=== PATIENT | female | born 1960 | race Caucasian/White ===

== ENCOUNTER 2020-04-30 11:14 | Inpatient (IN) | payer BC ==
[2020-04-30] MEDS ORDERED: ASPIRIN 81 MG PO STA (11:44)
[2020-04-30] MEDS ORDERED: SODIUM CHLORIDE 0.9% 500 ML 500 ML IV STA (11:44)
--- NOTE | 2020-04-30 11:52 | ED ---
General Adult HPI - General Chief complaint: Chest Pain Stated complaint: Chest Pain Time Seen by Provider: 04/30/20 11:31 Source: patient, RN notes reviewed Mode of arrival: wheelchair Limitations: no limitations - History of Present Illness Initial comments: Roseann is a pleasant 59-year-old female who presents to the emergency department for a chief complaint of chest pain. Patient states that approximately 1.5 hours prior to arrival she started to have some chest pain. Patient states she was walking with her daughter and had walked about a mile and a half and she started to have a squeezing chest pain. Patient states she normally walks 3-4 miles per day without problems. Patient states the pain was a squeezing pressure in the center of her chest. States that she started to become nauseous when she had this pain and diaphoretic. Patient states she started to get dizzy so she sat down on the curb and her daughter went to get the golf car to drive her back to the house and then drove her to the hospital. Patient did take an 81 mg aspirin. Patient has a history of high blood pressure, no history of hypercholesterolemia. Patient did have a similar episode that lasted 5 minutes 2 in November of this year and had a Holter monitor and stress test performed at [facility] which were both apparently negative according to patient. On presentation patient's pain has completely resolved and she is feeling back to her normal self. Patient has no other complaints at this time including shortness of breath, abdominal pain, vomiting, headache, or visual changes. - Related Data Allergies Allergy/AdvReac Type Severity Reaction Status Date / Time Penicillins AdvReac Nausea & Verified 04/30/20 11:24 Vomiting Sulfa (Sulfonamide AdvReac Rash/Hives Verified 04/30/20 11:24 Antibiotics) Review of Systems ROS Statement: Those systems with pertinent positive or pertinent negative responses have been documented in the HPI. ROS Other: All systems not noted in ROS Statement are negative. Past Medical History Past Medical History: Hypertension, Thyroid Disorder History of Any Multi-Drug Resistant Organisms: None Reported Past Surgical History: Section, Orthopedic Surgery, Tonsillectomy Past Psychological History: No Psychological Hx Reported Smoking Status: Never smoker Past Alcohol Use History: Occasional Past Drug Use History: None Reported General Exam Limitations: no limitations General appearance: alert, in no apparent distress Head exam: Present: atraumatic, normocephalic, normal inspection Eye exam: Present: normal appearance, PERRL, EOMI. Absent: scleral icterus, conjunctival injection, periorbital swelling ENT exam: Present: normal exam, mucous membranes moist Neck exam: Present: normal inspection, full ROM. Absent: tenderness, meningismus, lymphadenopathy Respiratory exam: Present: normal lung sounds bilaterally. Absent: respiratory distress, wheezes, rales, rhonchi, stridor Cardiovascular Exam: Present: regular rate, normal rhythm, normal heart sounds. Absent: systolic murmur, diastolic murmur, rubs, gallop, clicks Course Vital Signs 04/30/20 11:19 Temperature 97.3 F L Pulse Rate 80 Respiratory 18 Rate Blood Pressure 140/83 O2 Sat by Pulse 99 Oximetry EKG Findings - EKG Comments: EKG Findings:: Normal sinus rhythm, ventricular rate 77, MT interval 148, QTC 443 Medical Decision Making - Medical Decision Making Vitals are stable. Patient describes chest pain as atypical type of chest pain with chest pressure substernally, nausea, diaphoresis, and dizziness which occu rred while she was on a walk. Patient presents to the emergency room with chest pain resolved. CBC CMP unremarkable. Troponin negative. EKG shows a normal sinus rhythm with a ventricular rate of 77. No evidence for ST elevation or depression. Chest x-ray negative as well. At this time given typical symptoms of chest pain on exertion patient was heparinized, denies bleeding history. Patient will be admitted with cardiology consultation. - Lab Data Result diagrams: 04/30/20 11:35 04/30/20 11:35 Lab Results 04/30/20 04/30/20 04/30/20 Range/Units 11:35 11:35 11:35 WBC 6.7 (3.8-10.6) k/uL RBC 5.26 (3.80-5.40) m/uL Hgb 14.7 (11.4-16.0) gm/dL Hct 46.6 H (34.0-46.0) % MCV 88.6 (80.0-100.0) fL MCH 27.9 (25.0-35.0) pg MCHC 31.4 (31.0-37.0) g/dL RDW 13.8 (11.5-15.5) % Plt Count 275 (150-450) k/uL Neutrophils % 78 % Lymphocytes % 16 % Monocytes % 4 % Eosinophils % 0 % Basophils % 0 % Neutrophils # 5.2 (1.3-7.7) k/uL Lymphocytes # 1.1 (1.0-4.8) k/uL Monocytes # 0.3 (0-1.0) k/uL Eosinophils # 0.0 (0-0.7) k/uL Basophils # 0.0 (0-0.2) k/uL PT 9.7 (9.0-12.0) sec INR 0.9 (<1.2) APTT 21.4 L (22.0-30.0) sec Sodium 139 (137-145) mmol/L Potassium 4.1 (3.5-5.1) mmol/L Chloride 103 (98-107) mmol/L Carbon Dioxide 27 (22-30) mmol/L Anion Gap 9 mmol/L BUN 13 (7-17) mg/dL Creatinine 0.91 (0.52-1.04) mg/dL Est GFR (CKD-EPI)AfAm 79 (>60 ml/min/1.73 sqM) Est GFR (CKD-EPI)NonAf 69 (>60 ml/min/1.73 sqM) Glucose 162 H (74-99) mg/dL Calcium 9.5 (8.4-10.2) mg/dL Magnesium 1.9 (1.6-2.3) mg/dL Total Bilirubin 0.8 (0.2-1.3) mg/dL AST 114 H (14-36) U/L ALT 45 H (4-34) U/L Alkaline Phosphatase 128 H (38-126) U/L Troponin I (0.000-0.034) ng/mL Total Protein 7.2 (6.3-8.2) g/dL Albumin 4.3 (3.5-5.0) g/dL Amylase 39 (30-110) U/L Lipase 74 (23-300) U/L /05/14 Range/Units 11:35 WBC (3.8-10.6) k/uL RBC (3.80-5.40) m/uL Hgb (11.4-16.0) gm/dL Hct (34.0-46.0) % MCV (80.0-100.0) fL MCH (25.0-35.0) pg MCHC (31.0-37.0) g/dL RDW (11.5-15.5) % Plt Count (150-450) k/uL Neutrophils % % Lymphocytes % % Monocytes % % Eosinophils % % Basophils % % Neutrophils # (1.3-7.7) k/uL Lymphocytes # (1.0-4.8) k/uL Monocytes # (0-1.0) k/uL Eosinophils # (0-0.7) k/uL Basophils # (0-0.2) k/uL PT (9.0-12.0) sec INR (<1.2) APTT (22.0-30.0) sec Sodium (137-145) mmol/L Potassium (3.5-5.1) mmol/L Chloride (98-107) mmol/L Carbon Dioxide (22-30) mmol/L Anion Gap mmol/L BUN (7-17) mg/dL Creatinine (0.52-1.04) mg/dL Est GFR (CKD-EPI)AfAm (>60 ml/min/1.73 sqM) Est GFR (CKD-EPI)NonAf (>60 ml/min/1.73 sqM) Glucose (74-99) mg/dL Calcium (8.4-10.2) mg/dL Magnesium (1.6-2.3) mg/dL Total Bilirubin (0.2-1.3) mg/dL AST (14-36) U/L ALT (4-34) U/L Alkaline Phosphatase (38-126) U/L Troponin I <0.012 (0.000-0.034) ng/mL Total Protein (6.3-8.2) g/dL Albumin (3.5-5.0) g/dL Amylase (30-110) U/L Lipase (23-300) U/L Disposition Clinical Impression: Chest pain Disposition: ADMITTED IP TO THIS HOSP Condition: Good Instructions (If sedation given, give patient instructions): Chest Pain (ED) Is patient prescribed a controlled substance at d/c from ED?: No Referrals: Norberto Vazquez DO [Primary Care Provider] - 1-2 days Time of Disposition: 13:01
--- NOTE | 2020-04-30 12:06 | XR ---
EXAMINATION TYPE: XR chest 2V DATE OF EXAM ORDERED: 04/30/2020 HISTORY: Chest Pain. REFERENCE: None. FINDINGS: The lungs are clear. Pleural spaces are clear. Heart size is normal. IMPRESSION: NORMAL CHEST.
[2020-04-30 12:08] LABS: Basophils % (A) 0 %; Eosinophils % (A) 0 %; HCT 46.6 % (34.0-46.0); HGB 14.7 gm/dL (11.4-16.0); Lymphocytes # (A) 1.1 k/uL (1.0-4.8); Lymphocytes % (A) 16 %; MCH 27.9 pg (25.0-35.0); MCHC 31.4 g/dL (31.0-37.0); MCV 88.6 fL (80.0-100.0); Mean Platelet Volume 8.3; Monocytes # (A) 0.3 k/uL (0-1.0); Monocytes % (A) 4 %; Neutrophils # (A) 5.2 k/uL (1.3-7.7); Neutrophils % (A) 78 %; Platelet Count 275 k/uL (150-450); RBC 5.26 m/uL (3.80-5.40); RDW 13.8 % (11.5-15.5); WBC 6.7 k/uL (3.8-10.6)
[2020-04-30 12:17] LABS: Albumin 4.3 g/dL (3.5-5.0); Calcium 9.5 mg/dL (8.4-10.2); INR 0.9 (<1.2); Magnesium 1.9 mg/dL (1.6-2.3); Potassium 4.1 mmol/L (3.5-5.1); Prothrombin Time 9.7 sec (9.0-12.0); Total Bilirubin 0.8 mg/dL (0.2-1.3); Total Protein 7.2 g/dL (6.3-8.2)
[2020-04-30 12:27] LABS: Partial Thromboplastin Time 21.4 sec (22.0-30.0)
[2020-04-30] MEDS ORDERED: HEPARIN SODIUM,PORCINE 5,000 UNIT/ML 1 ML VIAL IV PRN (12:56)
[2020-04-30] MEDS: HEPARIN SOD,PORK IN 0.45% NACL 25,000 UNIT in 0.45% NACL 1 250ML.BAG IV SCH ×2 (13:10→20:47)
[2020-04-30] MEDS: HEPARIN SODIUM,PORCINE 5,000 UNIT/ML 1 ML VIAL IV ONE ×2 (13:15→20:39)
[2020-04-30] MEDS ORDERED: ACETAMINOPHEN TAB 500 MG TAB PO PRN (16:04)
[2020-04-30] MEDS: LEVOTHYROXINE 50 MCG TAB PO SCH (16:41)
[2020-04-30] MEDS ORDERED: ALPRAZolam 0.25 MG TAB PO PRN (21:16)
[2020-04-30] MEDS ORDERED: TEMAZEPAM 15 MG CAP PO PRN (21:16)
--- NOTE | 2020-04-30 23:21 | HP ---
HISTORY AND PHYSICAL DATE OF SERVICE: 04/30/2020 CHIEF COMPLAINT: Chest pain. HISTORY OF PRESENT ILLNESS: This 59-year-old woman with a past medical history of multiple medical problems including hypertension, hypothyroidism, history of section, history of DJD being followed by Dr. Vazquez in the [place] area, was staying in the [facility]. Patient was walking. Patient had chest pain which was felt in the lower part of the chest which was crushing in character, mild to moderate intensity without radiation. Usually the pain was relieving after a few minutes of resting, but because the pain is not relieving, the daughter was concerned and the patient was brought to [facility] Emergency Room and was admitted for evaluation and treatment. The patient also had some nausea along with that. The patient also had a stress test done in December with the family doctor which is negative for any reversible ischemia. There was no history of any palpitations, no history of cough, hemoptysis, fever, rigors, chills at this time. PAST MEDICAL HISTORY: History of hypertension, hypothyroidism, history of section, DJD, history of anxiety. MEDICATIONS PRIOR TO ADMISSION: 1. Glucosamine chondroitin. 2. Ziac 1 p.o. daily. 3. Tylenol. 4. Fluticasone. 5. Calcium with vitamin D. 6. Omeprazole. 7. Multivitamin. 8. Losartan 100 mg p.o. daily. 9. Synthroid 25 mcg p.o. Saturday and Synthroid 50 mcg p.o. Saturday, Saturday, Saturday, , Saturday, Saturday. ALLERGIES: PENICILLIN, SULFA. FAMILY HISTORY: No history of heart attacks or strokes in the family. 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 Occasional alcohol intake. No history of smoking. REVIEW OF SYSTEMS: ENT No history of diminished hearing or vision. CARDIOVASCULAR As mentioned earlier. RESPIRATORY As mentioned earlier. GI No nausea, vomiting, or diarrhea. No dysuria or hematuria. NERVOUS No numbness or weakness. ALLERGY/IMMUNOLOGY No asthma or hayfever. MUSCULOSKELETAL As mentioned earlier. HEMATOLOGY/ONCOLOGY Negative. ENDOCRINE Hypothyroidism. CONSTITUTIONAL As mentioned earlier. DERMATOLOGY Negative. RHEUMATOLOGY Negative, PSYCHIATRY As mentioned earlier. PHYSICAL EXAMINATION: Alert and oriented x3. Pulse is 80, blood pressure 141/82, respiration 12, temperature 97.6, pulse ox 98% on room air. HEENT: Conjunctivae normal. Oral mucosa moist. NECK: No jugular venous distention. No lymph node enlargement. CARDIOVASCULAR: S1, S2. RESPIRATORY: Diminished breath sounds at the bases. No rhonchi, no crackles. ABDOMEN: Soft, nontender. No mass palpable. LEGS: No edema, no swelling. NERVOUS SYSTEM: Higher functions mentioned earlier. Moves all four limbs. No focal deficits. LYMPHATICS: No lymph node in neck or axilla. SKIN: No rash. JOINTS: No active deforming arthropathy. LABS: CBC within normal limits. APTT 21.4. Glucose 162, AST is 114, ALT is 45, alkaline phosphatase 128. ASSESSMENT: 1. Chest pain, possible unstable angina. 2. History of recent negative stress test. 3. Increased AST/ALT. 4. Increased random blood sugar. 5. Hypertension. 6. Hypothyroidism. 7. History of section. 8. History of degenerative joint disease. 9. History of anxiety. 10.Obesity with body mass index of 35.4. RECOMMENDATIONS AND DISCUSSION: In this 59-year-old woman who presented with multiple complex medical issues, we will monitor the patient closely, continue the current management, continue symptomatic treatment. Initial troponins are negative. The EKG also did not show any acute abnormality. We will monitor closely. Unstable angina protocol with IV heparin. Repeat troponins. Rule out myocardial infarction. Cardiology consultation. Prognosis guarded because of multiple complex medical issues. Further recommendations to follow. Discussed with the patient who understands and agrees. MMODL / IJN: [id number] /
[2020-05-01 03:46] LABS: Albumin 3.6 g/dL (3.5-5.0); Calcium 9.2 mg/dL (8.4-10.2); Potassium 4.4 mmol/L (3.5-5.1); Total Bilirubin 0.4 mg/dL (0.2-1.3); Total Protein 6.3 g/dL (6.3-8.2)
[2020-05-01 04:08] LABS: Cholesterol 141 mg/dL (<200); HDL Cholesterol 69 mg/dL (40-60); LDL Cholesterol,Calculated 62 mg/dL (0-99); Triglycerides 51 mg/dL (<150)
[2020-05-01] MEDS ORDERED: LEVOTHYROXINE 50 MCG TAB PO SCH (06:30)
[2020-05-01] MEDS ORDERED: METHSCOPOLAMINE 5 MG PO SCH (09:00)
[2020-05-01] MEDS ORDERED: NON FORMULARY DRUG (Glucosam/Chon-Msm1/C/Mang/Bosw [Glucosamine-Chondroitin Tablet] 1 TAB) PO SCH (09:00)
[2020-05-01] MEDS ORDERED: ASPIRIN 325 MG TAB PO SCH (09:00)
[2020-05-01] MEDS: CALCIUM CARB-VIT D 500MG-200UN 1 EACH TAB PO SCH (09:01)
[2020-05-01] MEDS: LOSARTAN 50 MG TAB PO SCH (09:01)
[2020-05-01] MEDS: LORATADINE 10 MG TAB PO SCH (09:01)
[2020-05-01] MEDS: PANTOPRAZOLE 40 MG TABLET PO SCH (09:01)
[2020-05-01] MEDS: MULTIVITAMINS, THERA 1 EACH TAB PO SCH (09:01)
--- NOTE | 2020-05-01 10:21 | P.CRDCN ---
History of Present Illness Consult date: 05/01/20 Consult reason: chest pain History of present illness: The patient is a 59-year-old female with past medical history of hypothyroidism, hypertension, and acid reflux, who presented to the hospital with new onset of chest discomfort. She states this initially started back in November, where she would develop a sharp pressure-like sensation in her epigastric area. She states it would last approximately 10 minutes and was associated with diapho resis. She had 2 of these episodes in November and subsequently followed up with her primary care provider for stress testing and Holter monitor. Exercise stress echocardiogram at that time was unremarkable. She states her Holter monitor was also within normal limits, however we do not have a copy of this. On Saturday she had a large breakfast and started walking with her daughter. She developed the same epigastric discomfort, however it did not resolve within 10 minutes. At that point she instructed her daughter to drive her to the emergency room. By the time she arrived the pain started to subside, however it lasted approximately 45 minutes in duration. EKG shows sinus mechanism without acute ST or T-wave changes. Cardiac enzymes negative 3. Chest x-ray negative for acute process. She has not had any additional chest discomfort since her arrival. PAST MEDICAL HISTORY: Hypertension, hypothyroidism, anxiety disorder, obesity, acid reflux REVIEW OF SYSTEMS: No fever or chills. No cough or expectoration. No diaphoresis. Patient denies headache, dizziness, blurred vision, double vision. Patient denies any stomach discomfort. No nausea, vomiting. No hematochezia. No hematemesis. Denies any black stools or blood in his stools. Denies dysuria or hematuria. No muscle weakness or numbness. No chest pain. PHYSICAL EXAMINATION: This is a 59-year-old female in no apparent distress at the time of my examination. HEENT: Head is atraumatic, normocephalic. Pupils are equal, round. Sclerae anicteric. Conjunctivae are clear. Mucous membranes of the mouth are moist. Neck is supple. There is no jugular venous distention. No carotid bruit is heard. CHEST EXAMINATION: Lungs are clear to auscultation. No chest wall tenderness is noted on palpation or with deep breathing. HEART EXAMINATION: Heart regular rate and rhythm. S1, S2 heard. No murmurs, gallops or rub. ABDOMEN: Soft, nontender. Bowel sounds are heard. No organomegaly noted. EXTREMITIES: 2+ peripheral pulses with no evidence of peripheral edema and no calf tenderness noted. NEUROLOGIC EXAMINATION: Patient is awake, alert and oriented x3. LABORATORY DATA: WBC 6.7, hemoglobin 14.7, hematocrit 46.6, platelet 275, sodium 139, potassium 4.1, BUN 13, creatinine 0.91, magnesium 1.9, AST 114, ALT 45, ALP 128, triglycerides 51, HDL 69, LDL 62, troponins less than 0.0123 FINAL ASSESSMENT AND PLAN: #1 recurrent chest discomfort, recent normal stress echocardiogram in December #2 hypertension, reasonably well controlled #3 hypothyroidism #4 GERD #5 elevated liver enzymes PLAN: Discontinue heparin drip. Continue low dose ASA. Dr. Chinchilla discussed plan with the patient and recommends proceeding with left heart cath tomorrow morning to rule out coronary artery disease. However if the patient feels that she wants to follow-up in [facility], she may be discharged for outpatient followup. Past Medical History Past Medical History: Hypertension, Thyroid Disorder Additional Past Medical History / Comment(s): hypothyroid History of Any Multi-Drug Resistant Organisms: None Reported Past Surgical History: Section, Orthopedic Surgery, Tonsillectomy Additional Past Surgical History / Comment(s): left wrist sx, 2 ganglion cysts removed from bilat legts, D&C Past Anesthesia/Blood Transfusion Reactions: No Reported Reaction Past Psychological History: Anxiety Smoking Status: Never smoker Past Alcohol Use History: Occasional Past Drug Use History: None Reported Medications and Allergies Home Medications Medication Instructions Recorded Confirmed Type Acetaminophen [Tylenol Extra 1,000 mg PO DAILY PRN 04/30/20 04/30/20 History Strength] Calcium Carbonate/Vitamin D3 1 tab PO DAILY 04/30/20 04/30/20 History [Calcium 600-Vit D3 200 Tablet] Cetirizine HCl [Zyrtec] 10 mg PO DAILY 04/30/20 04/30/20 History Fluticasone Nasal [place] [Flonase 2 spr EA NOSTRIL DAILY 04/30/20 04/30/20 History Nasal [place]] Glucosam/Hung-Msm1/C/Bennie/Bosw 1 tab PO DAILY 04/30/20 04/30/20 History [Glucosamine-Chondroitin Tablet] Levothyroxine Sodium [Synthroid] 25 mcg PO CHUN 04/30/20 04/30/20 History Levothyroxine Sodium [Synthroid] 50 mcg PO [id number] 04/30/20 04/30/20 History Losartan Potassium 100 mg PO DAILY 04/30/20 04/30/20 History Methscopolamine 5mg 5 mg PO DAILY 04/30/20 04/30/20 History Multivitamins, Thera [Multivitamin 1 tab PO DAILY 04/30/20 04/30/20 History (formulary)] Omeprazole 20 mg PO DAILY 04/30/20 04/30/20 History Allergies Allergy/AdvReac Type Severity Reaction Status Date / Time Penicillins AdvReac Nausea & Verified 04/30/20 13:07 Vomiting Sulfa (Sulfonamide AdvReac Rash/Hives Verified 04/30/20 13:07 Antibiotics) Physical Exam Vitals: Vital Signs Temp Pulse Pulse Resp BP BP Pulse Ox 05/01/20 08:00 97.9 F 83 18 155/94 98 05/01/20 04:00 97.7 F 72 15 138/99 98 04/30/20 23:30 98.2 F 85 19 131/70 97 04/30/20 19:15 98.1 F 77 14 152/91 98 04/30/20 16:00 80 12 04/30/20 15:03 97.6 F 80 12 141/82 99 04/30/20 13:16 80 18 120/90 98 04/30/20 11:19 97.3 F L 80 18 140/83 99 Intake and Output 04/30/20 05/01/20 05/01/20 22:59 06:59 14:59 Intake Total 1276.167 Balance 1276.167 Intake: Intake, IV Titration 76.167 Amount Heparin Sod,Pork in 0.45% 76.167 NaCl 25,000 unit In 0.45 % NaCl 1 250ml.bag @ 10. 35 UNITS/KG/HR 10 mls/hr IV .Q24H [facility] Rx#: [id number] Oral 1200 Other: Voiding Method Toilet Toilet # Voids 1 1 Results 04/30/20 11:35 05/01/20 02:53 Cardiac Enzymes 04/30/20 04/30/20 04/30/20 Range/Units 11:35 11:35 19:18 AST 114 H (14-36) U/L Troponin I <0.012 <0.012 (0.000-0.034) ng/mL 05/01/20 05/01/20 Range/Units 01:11 02:53 AST 56 H (14-36) U/L Troponin I <0.012 (0.000-0.034) ng/mL Coagulation 04/30/20 04/30/20 05/01/20 Range/Units 11:35 19:18 02:53 PT 9.7 10.0 (9.0-12.0) sec APTT 21.4 L 32.3 H 56.0 H (22.0-30.0) sec Lipids 05/01/20 Range/Units 02:53 Triglycerides 51 (<150) mg/dL Cholesterol 141 (<200) mg/dL HDL Cholesterol 69 H (40-60) mg/dL CBC 04/30/20 Range/Units 11:35 WBC 6.7 (3.8-10.6) k/uL RBC 5.26 (3.80-5.40) m/uL Hgb 14.7 (11.4-16.0) gm/dL Hct 46.6 H (34.0-46.0) % Plt Count 275 (150-450) k/uL Comprehensive Metabolic Panel 04/30/20 05/01/20 Range/Units 11:35 02:53 Sodium 139 139 (137-145) mmol/L Potassium 4.1 4.4 (3.5-5.1) mmol/L Chloride 103 108 H (98-107) mmol/L Carbon Dioxide 27 25 (22-30) mmol/L BUN 13 15 (7-17) mg/dL Creatinine 0.91 0.89 (0.52-1.04) mg/dL Glucose 162 H 96 (74-99) mg/dL Calcium 9.5 9.2 (8.4-10.2) mg/dL AST 114 H 56 H (14-36) U/L ALT 45 H 56 H (4-34) U/L Alkaline Phosphatase 128 H 118 (38-126) U/L Total Protein 7.2 6.3 (6.3-8.2) g/dL Albumin 4.3 3.6 (3.5-5.0) g/dL Current Medications Generic Name Dose Route Start Last Admin Trade Name Freq PRN Reason Stop Dose Admin Acetaminophen 1,000 mg 04/30/20 16:04 Tylenol Tab PO DAILY PRN Pain Alprazolam 0.25 mg 04/30/20 21:16 Xanax PO TID PRN Anxiety Aspirin 325 mg 05/01/20 09:00 05/01/20 09:01 Aspirin PO 325 mg DAILY DEVIN Administration Calcium Carbonate 1 each 05/01/20 09:00 05/01/20 09:01 Oscal 500+D PO 1 each DAILY DEVIN Administration Fluticasone Propionate 2 spray 05/01/20 09:00 Flonase Nasal [place] EA NOSTRIL DAILY DEVIN Levothyroxine Sodium 50 mcg 04/30/20 16:15 04/30/20 16:41 Synthroid PO Not Given [id number] [facility] Levothyroxine Sodium 25 mcg 05/01/20 06:30 05/01/20 06:35 Synthroid PO 25 mcg Chun@0630 DEVIN Administration Loratadine 10 mg 05/01/20 09:00 05/01/20 09:01 Claritin PO 10 mg DAILY DEVIN Administration Losartan Potassium 100 mg 05/01/20 09:00 05/01/20 09:01 Cozaar PO 100 mg DAILY [facility] Administration Multivitamins 1 each 05/01/20 09:00 05/01/20 09:01 Theragran PO 1 each DAILY [facility] Administration Methscopolamine 5mg 5 mg 05/01/20 09:00 05/01/20 09:04 PO Not Given DAILY DEVIN Pantoprazole Sodium 40 mg 05/01/20 07:30 05/01/20 09:01 Protonix PO 40 mg AC-[id number] [facility] Administration Temazepam 15 mg 04/30/20 21:16 Restoril PO HS PRN Insomnia Intake and Output 04/30/20 05/01/20 05/01/20 22:59 06:59 14:59 Intake Total 1276.167 Balance 1276.167 Intake: Intake, IV Titration 76.167 Amount Heparin Sod,Pork in 0.45% 76.167 NaCl 25,000 unit In 0.45 % NaCl 1 250ml.bag @ 10. 35 UNITS/KG/HR 10 mls/hr IV .Q24H [facility] Rx#: [id number] Oral 1200 Other: Voiding Method Toilet Toilet # Voids 1 1 04/30/20 11:35 05/01/20 02:53
[2020-05-01] MEDS: FLUTICASONE 50MCG/SPRAY NASAL 16GM EA NOSTRIL SCH (11:12)
[2020-05-01] MEDS ORDERED: ALPRAZolam 0.25 MG TAB PO PRN (12:56)
[2020-05-01] MEDS ORDERED: ALPRAZolam 0.5 MG TAB PO PRN (12:56)
[2020-05-01] MEDS ORDERED: NITROGLYCERIN SL TABS 0.4 MG TAB SUBLINGUAL PRN (12:56)
[2020-05-01] MEDS ORDERED: SODIUM CHLORIDE 0.9% 1,000 ML in EMPTY BAG 1 BAG IV ONE (12:56)
[2020-05-01] MEDS: ASPIRIN 81 MG PO SCH (12:59)
[2020-05-01 17:35] LABS: Basophils % (A) 1 %; Eosinophils # (A) 0.1 k/uL (0-0.7); Eosinophils % (A) 1 %; HCT 44.4 % (34.0-46.0); HGB 13.5 gm/dL (11.4-16.0); Hypochromasia Moderate; Lymphocytes # (A) 1.7 k/uL (1.0-4.8); Lymphocytes % (A) 28 %; MCH 28.3 pg (25.0-35.0); MCHC 30.3 g/dL (31.0-37.0); MCV 93.3 fL (80.0-100.0); Mean Platelet Volume 10.6; Monocytes # (A) 0.4 k/uL (0-1.0); Monocytes % (A) 8 %; Neutrophils # (A) 3.5 k/uL (1.3-7.7); Neutrophils % (A) 60 %; Platelet Count 215 k/uL (150-450); RBC 4.76 m/uL (3.80-5.40); RDW 13.9 % (11.5-15.5); WBC 5.8 k/uL (3.8-10.6)
--- NOTE | 2020-05-01 23:59 | PN ---
PROGRESS NOTE DATE OF SERVICE: 05/01/2020 This 59-year-old woman who presented with multiple complex medical issues including chest pain is being closely monitored at this time. Cardiology planning cardiac catheterization tomorrow. No chest pain. No palpitations. No fever. PHYSICAL EXAMINATION: On exam, alert and oriented x3. Pulse 73, blood pressure 114/70, respiration 18, temperature 98.2, pulse ox 97% on room air. HEENT: Conjunctivae normal. NECK: No jugular venous distention. CARDIOVASCULAR: S1, S2 muffled. RESPIRATORY: Breath sounds diminished at the bases. No rhonchi, no crackles. ABDOMEN: Soft, nontender. LEGS: No edema. No swelling. NERVOUS SYSTEM: No focal deficits. LABS: Sodium 139, potassium 4.4. AST is 56, ALT is 56. HDL is 69. ASSESSMENT: 1. Chest pain possible unstable angina. 2. History of recent negative stress test. 3. Increased AST, ALT. 4. Increased random blood sugar. 5. Hypertension. 6. Hypothyroidism. 7. History of section. 8. History of degenerative joint disease. 9. Anxiety. 10.Obesity with body mass of 35.4. RECOMMENDATIONS AND DISCUSSION: Recommend to continue current medical medication. Continues symptomatic treatment. Otherwise follow closely with Cardiology, possible cardiac catheterization. Otherwise, I would also recommend acute hepatitis panel. Otherwise guarded prognosis. Further recommendations to follow. MMODL / IJN: [id number] /
[2020-05-02] MEDS ORDERED: ASPIRIN 325 MG TAB PO ONE (05:00)
[2020-05-02] MEDS ORDERED: ATORVASTATIN 80 MG TAB PO ONE (05:00)
[2020-05-02] MEDS: CALCIUM CARB-VIT D 500MG-200UN 1 EACH TAB PO SCH (05:39)
[2020-05-02] MEDS: ASPIRIN 81 MG PO SCH (05:39)
[2020-05-02] MEDS: LEVOTHYROXINE 50 MCG TAB PO SCH (05:39)
[2020-05-02] MEDS: LOSARTAN 50 MG TAB PO SCH (05:39)
[2020-05-02] MEDS: PANTOPRAZOLE 40 MG TABLET PO SCH (05:40)
[2020-05-02] MEDS: LORATADINE 10 MG TAB PO SCH (05:40)
[2020-05-02 06:10] LABS: Glucose,Whole Blood 90 mg/dL (75-99)
[2020-05-02 08:04] VITALS: RESP 18
[2020-05-02 08:19] LABS: Prothrombin Time 10.2 sec (9.0-12.0)
[2020-05-02] MEDS ORDERED: LIDOCAINE 1% INJ 10MG/ML (20 ML MDV) ONE (08:37)
[2020-05-02] MEDS ORDERED: SODIUM CHLORIDE 0.9% 1,000 ML IV ONE (08:43)
[2020-05-02] MEDS ORDERED: MIDAZOLAM 2 MG/2 ML VIAL IVP ONE (08:51)
[2020-05-02] MEDS ORDERED: fentaNYL (PF) 50 MCG/ML 2 ML AMP ONE (08:53)
[2020-05-02] MEDS ORDERED: fentaNYL (PF) 50 MCG/ML 2 ML AMP IVP ONE (08:56)
[2020-05-02] MEDS ORDERED: LIDOCAINE 1% INJ 10MG/ML (20 ML MDV) SQ ONE (08:56)
[2020-05-02] MEDS ORDERED: IOPAMIDOL-370 125ML BTL INJ ONE (09:14)
[2020-05-02] MEDS ORDERED: RX INFO: IV CONTRAST WAS GIVEN 1 EACH MISC MISCELLANE PRN (09:23)
[2020-05-02 09:34] VITALS: TEMP 97.7
[2020-05-02] MEDS: FLUTICASONE 50MCG/SPRAY NASAL 16GM EA NOSTRIL SCH (11:27)
--- NOTE | 2020-05-02 12:07 | CC ---
CARDIAC CATHETERIZATION REPORT INDICATION: Unstable angina This is a 59-year-old lady who recently underwent workup in the outpatient setting at [facility] with a stress test and was told that it was normal. Came to hospital with symptoms of chest pain and was evaluated by Dr. Chinchilla, my associate, who advised her to undergo cardiac catheterization for definitive diagnosis. She had been explained of risks, benefits and alternatives, understood and accepted. I was asked to perform the catheterization. PROCEDURE NOTE: After obtaining informed consent, left heart catheterization and coronary angiogram were performed via the right femoral artery using standard Nannette catheters. The patient tolerated the procedure well without any immediate complications. The femoral angiogram was performed and Angio-Seal with deployed for hemostasis. Patient received moderate conscious sedation. Total sedation time was 10 minutes. FINDINGS: HEMODYNAMICS: Left ventricular end-diastolic pressure is 8 to 12 mm, there is no significant gradient across the aortic valve. LEFT VENTRICULOGRAM: Left ventriculogram has not been performed. ANGIOGRAPHIC DATA LEFT MAIN CORONARY ARTERY: Left main coronary artery is a normal-sized vessel and is free of stenosis. Divides into left anterior descending coronary artery and circumflex coronary artery. LAD and its branches, circumflex coronary artery and its branches are free of significant stenosis. Right coronary artery is a large dominant vessel and is free of significant disease. CONCLUSION: 1. Normal coronary arteries. 2. Normal left ventricular end-diastolic pressure. PLAN: Patient's chest discomfort is noncardiac in origin and her management is going to be in the form of risk factor modification, optimal medical therapy. MMODL / IJN: [id number] /
[2020-05-02 12:28] VITALS: PULSE 72
[2020-05-02 12:29] VITALS: BP 126/74
[2020-05-02 12:41] LABS: Hepatitis A Antibody IgM Non-Reactive (Non-Reactive); Hepatitis B Core IgM Non-Reactive (Non-Reactive); Hepatitis B Surface Antigen Non-Reactive (Non-Reactive); Hepatitis C IgG Antibody Non-Reactive (Non-Reactive)
[2020-05-02] MEDS: MULTIVITAMINS, THERA 1 EACH TAB PO SCH (13:27)
--- NOTE | 2020-05-03 05:42 | DS ---
DISCHARGE SUMMARY DATE OF SERVICE: 05/02/2020. FINAL DIAGNOSES: 1. Chest pain possible unstable angina, status post cardiac catheterization, normal coronary arteries and normal left ventricular end-diastolic pressure. Other diagnosis are possible gastroesophageal reflux disease. 2. History of recent negative stress test. 3. Increased AST. 4. Increased random blood sugar. 5. Hypertension. 6. Hypothyroidism. 7. History of section. 8. History of degenerative joint disease. 9. History of anxiety. 10.Obesity with body mass index 35.4. DISCHARGE DISPOSITION: The patient will be discharged in stable condition with guarded prognosis. HISTORY OF PRESENT ILLNESS: This 59-year-old woman with a past medical history of multiple problems was admitted with chest pain, performed a cardiac catheterization which was normal. On exam, vitals are stable. CARDIOVASCULAR: S1, S2 muffled. ABDOMEN: Soft. NERVOUS SYSTEM: No focal deficits. Labs are also noted. Hepatitis panel is negative. Recommend AST, ALT in the outpatient setting. DISCHARGE ADVICE: 1. Diet is cardiac diet. 2. Activity limited until followup. 3. Follow up with Dr. Vazquez in 2 to 3 days. 4. Follow up with Cardiology as recommended. Medications are: 1. Calcium carbonate p.o. daily. 2. Flonase daily. 3. Glucosamine as before. 4. Losartan 100 mg daily. 5. Methscopolamine 5 mg p.o. daily. 6. Multivitamins one p.o. daily. 7. Omeprazole 20 mg daily. 8. Synthroid 50 mcg p.o. as before and 25 mg p.o. on Saturday. 9. Tylenol p.r.n. 10.Zyrtec p.r.n. Once again, the patient will be discharged in stable condition with guarded prognosis. MMODL / IJN: [id number] /
== END 2020-05-02 16:17 | disposition home or self-care (01) | DRG 392 ==
LOC: EC 11:14 → 1SOBS 14:09 → OBSVTOIN 05-02 08:47
PROVIDERS: ADMIT Hospitalist; ATTEND Hospitalist
PROC: B2111ZZ Fluoroscopy of Multiple Coronary Arteries using Low Osmolar Contrast (ICD-10-PCS; 2020-05-02)
PROC: 4A023N7 Measurement of Cardiac Sampling and Pressure, Left Heart, Percutaneous Approach (ICD-10-PCS; principal; 2020-05-02 08:30)
DX: K21.9 Gastro-esophageal reflux disease without esophagitis (principal); R07.89 Other chest pain; Z11.59 Encounter for screening for other viral diseases; E03.9 Hypothyroidism, unspecified; I10 Essential (primary) hypertension; F41.9 Anxiety disorder, unspecified; E66.9 Obesity, unspecified; M19.90 Unspecified osteoarthritis, unspecified site; Z68.35 Body mass index [BMI] 35.0-35.9, adult; Z79.890 Hormone replacement therapy; Z79.899 Other long term (current) drug therapy; Z98.890 Other specified postprocedural states; Z88.0 Allergy status to penicillin; Z88.2 Allergy status to sulfonamides
CPT/HCPCS: 36415; 71046; 80053; 80061; 80074; 82150; 83690; 83735; 84484; 85025; 85379; 85610; 85730; 93005; 93458; 96365; 96376; 99285